=== PATIENT | female | born 1985 | race Caucasian/White ===

== ENCOUNTER 2017-03-21 16:45 | Inpatient (IN) | payer MEDICAID, SELFPAY ==
--- NOTE | 2017-03-19 22:30 | PLAC_PTH ---
PATIENT: MAR ACOSTA LOC: [facility] U#:[id number] AGE/SX: 31/F ROOM: WP014 RE03/21/[address]: Dr. Radha Lomeli MD : [id number] BED: 1 DIS: 03/23/2017 SPEC #: [id number] RECD: 03/21/17 23:57 STATUS: CONSUELO ANDREW #: [id number] KEVIN: 03/19/17 22:[address]: Radha Lomeli DEPT: SURGICAL PATHOLOGY RECD BY: Dre Reveles ENTERED: 03/22/17 08:21 SP TYPE: PLACENTA OTHR DR: No Primary Care Phys Tissues: Placenta, NOS Procedures: Surgery Specimen Level V HEADER OPERATION: Vaginal delivery PRE-OP DIAGNOSIS: Drug use in TISSUE SUBMITTED: Placenta MICROSCOPIC DIAGNOSIS Camacho placenta (548 gm): Umbilical cord ? trivascular with no inflammation. Placental membranes ? acute deciduitis and acute chorioamnionitis, focal acute amnionitis. Placental disc ? remote infarct, Kai-Tomas change and intravillous congestion. AM:andrea 03/23/17 MICROSCOPIC DESCRIPTION Slides are reviewed. GROSS DESCRIPTION SPECIMEN: PLACENTA / CLINICAL INFORMATION: A. Weight: 3.025 kg B. Gestational Age: 37 weeks C. Sex: Male PLACENTAL WEIGHT (POST FIXATION): 548 gm PLACENTAL DIMENSIONS: 16 x 15 x 3 cm PLACENTAL SHAPE: Usual ovoid PLACENTAL WEIGHT FOR GESTATIONAL AGE: Within 10-99th percentile MEMBRANES - Present A. Insertion: Marginal B. Site of rupture from edge: At 8 cm from edge of placental disc C. Color of membrane: Oglesby-benites D. Abnormalities: None UMBILICAL CORD - Present A. Color: Oglesby-benites B. Insertion: Marginal C. Length: 32 cm D. Diameter: 1 cm E. Number of vessels: Three F. Abnormalities: None PLACENTAL DISC - Present A. Color of surface: Oglesby-benites B. surface abnormalities: None C. Maternal cotyledons: Intact with minimal tears D. Attached retro placental clot: No clot E. Cut surface: Dark red and spongy F. Lesions: Serial sections reveal a oglesby-white lesion measuring 2.5 x 2 x 1.5 cm at edge of the placental disc. G. Separate clot: Absent SECTIONS SUBMITTED: 1. Membrane roll and umbilical cord ( end inked in black) 2. Placental disc, and maternal surfaces, lesion 3. Placental disc, and maternal surfaces 4. Placental disc, and maternal surfaces AM:andrea 03/22/17 TC:2 CPT: 64611
[2017-03-21 17:02] VITALS: BMI 24.7
[2017-03-21] MEDS: Lactated Ringers 1,000 ML 50 ML IV ×2 (17:15→18:20)
[2017-03-21 17:24] LABS: Hematocrit 32.2 % (37-47); Hemoglobin 10.5 g/dl (12.0-15.0); Mean Corp Hgb Conc 32.6 g/gl (32-36); Mean Corpuscular Hgb 31.4 pg (27.0-32.0); Mean Corpuscular Volume 96.4 fL (81-99); Mean Platelet Vol. 11.3 fl (6.2-12.0); Platelet Count 185 K/mm3 (150-450); RBC Distribution Width CV 13.4 % (11.6-14.6); RBC Distribution Width SD 45.9 fl (35.1-43.9); Red Blood Count 3.34 M/mm3 (4.2-5.4)
[2017-03-21 17:27] LABS: Scan Indicated on CBC? Y/N NO
[2017-03-21 17:39] LABS: Amphetamine Urine VISTA NEGATIVE (<1000 ng/mL); Barbiturate Urine VISTA NEGATIVE (< 200 ng/mL); Benzodiazepine Urine VISTA NEGATIVE (< 200 ng/mL); Cocaine Urine VISTA NEGATIVE (< 300 ng/mL); Ecstacy Urine VISTA NEGATIVE (< 500 ng/mL); Methadone Urine VISTA NEGATIVE (< 300 ng/mL); PCP Urine VISTA NEGATIVE (< 25 ng/mL); THC Urine VISTA NEGATIVE (< 50 ng/mL); Vista UDS pH Range 5
[2017-03-21 19:44] LABS: Chlamydia Trachomatis by PCR POSITIVE (Negative); Neisserai gonorrhoeae by PCR Negative (Negative); Probe Check PASS
--- NOTE | 2017-03-21 21:17 | HP.PCM_ITS ---
(1) Active labor at term Status: Acute (2) Supervision of high risk due to social problems Status: Acute Qualifiers: Comment: CASSANDRA 04/08/17 (3) complicated by subutex maintenance, antepartum Status: Acute Comment: MFM consult (4) Late care affecting in third trimester Status: Acute Comment: first visit 30 weeks, growth us initially at [place] , fu growth us consistent (5) Drug use affecting Status: Acute Qualifiers: Comment: on subutex, positive for benzos and amphetamines (6) Chlamydia infection affecting in third trimester Status: Acute Comment: ordered azithro, needs DINO ta 36 weeks, check hiv, hep c, rpr, and gbs at 36 weeks History Date of Admission: 03/21/17 Gestational age: 37 History of this : 31 yo @ 37w3 days presents IAL 3-4 cm dilated made change to 5 Pertinent Past Medical History: see problem list and history section Allergies hydrocodone bitartrate [From Vicodin] Adverse Reaction (Mild, Verified 03/21/17 17:04) Other INCREASED RESTLESS LEGS diphenhydramine Adverse Reaction (Verified 03/05/17 14:21) Other INCREASED RESTLESS LEGS propoxyphene napsylate [From Darvocet-N] Adverse Reaction (Verified 03/05/17 14: 21) Other INCREASED RESTLES SYNDROME Current Medications Acetaminophen (Tylenol) 325 - 650 mg PO Q4H PRN PRN PRN Reason: PAIN OR FEVER >100.4F Al Hydroxide/Mg Hydroxide (Mylanta Ii) 15 - 30 ml PO Q4H PRN PRN PRN Reason: INDIGESTION Citric Acid/Sodium Citrate (Bicitra) 30 ml PO UD PRN Lactated Ringer's () 1,000 mls @ 50 mls/hr IV .Q20H SAIMA Last Admin: 03/21/17 18:20 Dose: 50 mls/hr Penicillin G Potassium/Dextrose (Penicillin G Potassium) 3 mu in 50 mls @ 100 mls/hr IV Q4H SAIMA Naloxone HCl 4 mg/ Dextrose 504 mls @ 0 mls/hr IV PRN PRN; Protocol PRN Reason: TO MAINTAIN RR>10 Nalbuphine HCl (Nubain) 5 - 10 mg IV Q3H PRN PRN PRN Reason: PAIN (4-10/10) Naloxone HCl (Narcan) 0.2 mg IV Q1M PRN PRN Reason: RR<10 AND PT UNRESPONSIVE Stop: 03/22/17 19:31 Ondansetron HCl (Zofran) 4 mg IV Q8H PRN PRN PRN Reason: NAUSEA Promethazine HCl (Phenergan (Ll)) 6.25 - 12.5 mg IV Q4H PRN PRN; Protocol PRN Reason: IF NAUSEA PERSISTS Sodium Chloride () 5 - 15 ml IV UD SAIMA Last Admin: 03/21/17 19:54 Dose: Not Given Smoking Status: Current every day smoker Alcohol: None Drug Use: marijuana - on subutex has been positive for meth and benzos Number of Fetus(es): 1 - FHT 120-130 min-moderate variability reactive no decels cat I tracing Review of Systems Constitutional: Denies: Chills, Fever, Weight Change HEENT: Denies: Head Aches, Sinus Congestion, Sinus Drainage Cardiovascular: Denies: Chest Pain, Palpitations Respiratory: Denies: Cough, Shortness of breath at rest, Sputum production Gastrointestinal: Reports: Abdominal Pain, Nausea. Denies: Vomiting Genitourinary: Denies: Dysuria Musculoskeletal: Denies: Joint Pain, Joint Tenderness Skin: Denies: Rash, Wounds Neurological: Denies: Numbness, Tingling, Focal weakness Psychiatric: Denies: Anxiety, Depression, Homicidal Ideations, Suicidal Ideations Hematologic/ Lymphatic: Denies: Easy Bruising, Easy Bleeding Physical Exam General: Alert, Oriented x3, No apparent distress Cardiovascular: Regular rate Lungs: Normal air movement Abdomen: Soft, Gravid Estimated gestational size: Small for gestational age Presentation: Cephalic Cervix Dilation (cm): 5 Station: -1 Effacement (%): 90 Assessment/Plan Active and Suspected Problems (Last Reviewed 03/05/17 @ 14:21 by Amy Prajapati) Active labor at term (Acute) 31 yo @ 37w3d presents IAL gbs neg on most recent culture, no positive urine cultures in recent chlamydia- s/p treatment subutex treatment- continue patient's own plan PPTL- title 19 signed epidural
[2017-03-21] MEDS: Oxytocin 30 units/NS 500 ml 30 UNITS/500 ML IV.SOLN 334 UNITS IV (22:14)
--- NOTE | 2017-03-21 22:38 | PCM.OB.VAG ---
(1) Active labor at term Status: Acute (2) Supervision of high risk due to social problems Status: Acute Qualifiers: Comment: CASSANDRA 04/08/17 (3) complicated by subutex maintenance, antepartum Status: Acute Comment: MFM consult (4) Late care affecting in third trimester Status: Acute Comment: first visit 30 weeks, growth us initially at [place], fu growth us consistent (5) Drug use affecting Status: Acute Qualifiers: Comment: on subutex, positive for benzos and amphetamines (6) Chlamydia infection affecting in third trimester Status: Acute Comment: ordered azithro, needs DINO ta 36 weeks, check hiv, hep c, rpr, and gbs at 36 weeks (7) Normal delivery at term Status: Acute Vaginal Delivery Maternal Presentation: Active Labor 31-year-old at 37 weeks 3 days presents in active labor Amniotic Membrane Rupture Type: Artificial Amniotic Fluid Description: Clear Final CASSANDRA: 04/08/17 Gestational age: 37 Weeks and 3 Days Date of Procedure: 03/21/17 Pre-Operative Diagnosis: 31-year-old at 37 weeks 3 days in active labor Post-Operative Diagnosis: Same Surgery/ Procedure Performed: Spontaneous Vaginal Delivery Type of Anesthesia: Epidural Description of Procedure: Patient began pushing and delivered the head in the JASON presentation. The head was delivered atraumatically. The anterior and posterior shoulders delivered without complication followed by the rest of the and the infant was placed on the maternal abdomen. Delayed cord clamping was employed for approximately 60 seconds. Cord was clamped and cut and gentle traction was applied to the cord and the placenta delivered spontaneously immediately following it was noted to be intact with three-vessel cord. The perineum and vagina were inspected and noted to have no laceration. EBL was 100 cc. Patient and tolerated delivery well. Presentation: JASON Placental Delivery Description: Spontaneous Placenta Disposition: Sent to Pathology Cord Vessel Description: 3 Vessels Cord Gases drawn per routine: ABG Cord Entanglement: None Estimated Blood Loss: 100 A gender: Male (1 minute): 8 (5 minute): 9 Episiotomy Description: None Laceration: None Medications given after delivery: IV Pitocin Complications: None
--- NOTE | 2017-03-21 22:41 | DCINST_ITS ---
Discharge Diet: No Restrictions Discharge Activity: Return to Normal Activity, May not drive while taking narcotic pain medications., May Shower May resume sexual activity in: 4-6 weeks Additional Activity Instructions:: Nothing in the vagina for 4-6 weeks. You may return to work/school in 6 weeks. Call your doctor if your incision/area has: Continuous Slow Oozing, Sudden Increased Bleeding, Increased Pain/ Swelling, Increased Redness, Foul Smelling Discharge Additional Instructions: If you experience any of the following, contact your healthcare provider. * Bleeding that soaks a pad every hour for 2 hours * Fever 100.4 or higher * Unrelieved incision or abdominal pain * Swelling, redness, discharge or bleeding from your incision or episiotomy site * Your incision begins to separate * Problems urinating (including inability to urinate or burning while urinating) . * Visual changes * Severe headache * Flu-like symptoms * Pain or redness in one of both of your breasts * Pain, warmth, tenderness or swelling in your legs, especially the calf area * Frequent nausea and vomiting * Symptoms of depression or anxiety If you experience any of the following, call 911 or go to the nearest Emergency Room. * Chest pain * Problems breathing * Seizure activity * Partial or complete paralysis of a body part, slurred speech, weakness or drooping of the face, or a sudden inability to walk or hold your balance Allergies/Adverse Reactions: Allergies hydrocodone bitartrate [From Vicodin] Adverse Reaction (Mild, Verified 03/21/17 17:04) Other INCREASED RESTLESS LEGS diphenhydramine Adverse Reaction (Verified 03/05/17 14:21) Other INCREASED RESTLESS LEGS propoxyphene napsylate [From Darvocet-N] Adverse Reaction (Verified 03/05/17 14: 21) Other INCREASED RESTLES SYNDROME Medications to take at Discharge Vits 2 tab PO DAILY 03/08/14 buprenorphine HCl 8 mg sublingual tablet 8 mg SUBLINGUAL QDAY 02/17/17 hydroxyzine pamoate 25 mg capsule 25 mg PO TID-QID PRN #30 cap 02/17/17 Citalopram Hydrobromide [Citalopram HBr] 20 mg PO QDAY 03/21/17 vitamin #56-iron 35 mg and 5 mg-folic acid 1 mg-dha capsule 1 cap PO QHS 03/21/17 Please Follow Up With: Radha Lomeli MD - [phone] When: Call to make an appointment with your doctor in 6 weeks. If you had elevated Blood Pressure or 4th degree laceration you will need to be seen in 2 weeks. Primary Care Physician: Care Physician,No Primary [Primary Care Provider] -
[2017-03-21] MEDS: Oxytocin 30 units/NS 500 ml 30 UNITS/500 ML IV.SOLN 167 UNITS IV (22:45)
[2017-03-21] MEDS: Lactated Ringers 1,000 ML 125 ML IV (23:53)
[2017-03-22] MEDS: Acetaminophen 500 MG Tablet 1000 MG PO (00:08)
--- NOTE | 2017-03-22 02:20 | NURSING ---
At 0130, this nurse called Dr. Lomeli reguarding pts request to go outside to smoke, she currently has her IV and epidural catheter in d/t her scheduled Bilateral Tubal Ligation in the AM. states she can have her IV and epidural removed prior to going outside, but will have to have them replaced in the morning prior to the procedure. The pt was informed of this and she then refused to have her epidural/spinal replaced if it is removed. She states she will cancel her procedure if that is the case. The pt was upset and felt the staff and MD were treating her this way bc of her drug history. The patient was informed this is our hospital policy and all pts have to follow this. Pt states she wants Dr. Lomeli to know she wants her tubal canceled bc she is going outside. Dr. Lomeli was then called back at 0145 and made aware of the pts feelings and she is refusing the tubal if her epidural is pulled. she does not want another one placed (or spinal). states if that is what she wants then its her right to. This nurse then returned to the pt room with Charge nurse Terrie Carrillo to notify her Dr. Lomeli states she cannot leave the unit with her epidural. So if she wants to go outside it must be removed and if by morning she still does not want the IV and spinal done, then she will not be doing the tubal. Pt states she wants them out now so she can go outside. Pt got up to BR to void for this nurse, then the epidural and IV were removed. Blue tip was intact.
[2017-03-22 04:50] VITALS: BP 104/57; PULSE 73; RESP 18; TEMP 36.6; O2SAT 99
[2017-03-22 08:00] VITALS: BP 124/75; PULSE 76; RESP 16; TEMP 36.8; O2SAT 99
[2017-03-22] MEDS: Citalopram 20 MG Tablet PO (10:05)
[2017-03-22] MEDS: BUPRENORPHINE HCL 8 MG TAB.SUBL SL ×2 (10:05→21:34)
[2017-03-22 11:45] VITALS: BP 107/65; PULSE 72; RESP 16; TEMP 36.8; O2SAT 98
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
[2017-03-22 16:30] VITALS: BP 110/65; PULSE 70; RESP 16; TEMP 36.9; O2SAT 99
--- NOTE | 2017-03-22 17:00 | CASEMGMT ---
Social Work Note - Labor and Delivery Unit 1530 - Followed up with mother of baby (MOB), providing MOB with resource list of social service agencies in [facility]. MOB reports plan to call [facility] about of baby and may look into whether MOB qualifies for other resources/programs through [facility]. 1605 - Called [facility] ([facility]) at [phone] and spoke with Chely in the intake department. Referral to Chely about of baby, concern about maternal drug use during , positive and negative screens back for MOB, pending results for baby but that baby is appearing to show signs of withdrawal already. Reported that MOB has limited supplies for baby as well as very limited care this . 1637 - Message left for MOBs ongoing [facility] worker, Oksana Smith at [phone], extension [phone]. Let Oksana know that report was called into agency by this food writer and provided this writers name and number should Oksana need to speak to this food writer. PLAN: Social work to follow MOB and baby during hospital stay. -ABIGAIL Ortiz, METAL TEMPERER
[2017-03-22 19:29] VITALS: BP 105/60; PULSE 114; RESP 18; TEMP 37.1; O2SAT 95
--- NOTE | 2017-03-22 21:25 | PCM.PN.OB ---
Patient Problems: Active and Suspected Problems (Last Reviewed 03/05/17 @ 14:21 by Amy Prajapati) Active labor at term (Acute) Normal delivery at term (Acute) Subjective: tolerating po no cp sob declines pptl - Physical Exam General: Alert, Oriented x3 Vital Signs Temp Pulse Resp BP Pulse Ox 98.8 F 114 H 18 105/60 95 03/22/17 19:29 03/22/17 19:29 03/22/17 19:29 03/22/17 19:29 03/22/17 19:29 Oxygen Delivery Method Room Air Weight: 167 lb 8.821 oz Body Mass Index (BMI) 24.7 Intake and Output for Last 24 Hours 03/20/17 03/21/17 03/22/17 23:59 23:59 23:59 Intake Total 2430 / 2430 Output Total 1000 / 1000 1500 / 1500 Balance 1430 / 1430 -1500 / -1500 Assessment/Plan Active and Suspected Problems (Last Reviewed 03/05/17 @ 14:21 by Amy Prajapati) Active labor at term (Acute) Normal delivery at term (Acute) s/p recommend care PP- continue subutex, routine care. declines pptl
[2017-03-23 02:57] VITALS: BP 114/63; PULSE 57; RESP 18; TEMP 37.1; O2SAT 99
[2017-03-23 08:00] VITALS: BP 110/77; PULSE 112; RESP 20; TEMP 36.9; O2SAT 97
[2017-03-23 08:30] VITALS: BP 110/77; PULSE 98; RESP 16; TEMP 36.9; O2SAT 98
--- NOTE | 2017-03-23 08:59 | PCM.PN.OB ---
Patient Problems: Active and Suspected Problems (Last Reviewed 03/05/17 @ 14:21 by Amy Prajapati) Active labor at term (Acute) Normal delivery at term (Acute) Subjective: doing well pain controlled - Physical Exam General: Alert, Oriented x3 Vital Signs Temp Pulse Resp BP Pulse Ox 98.4 F 98 16 110/77 98 03/23/17 08:30 03/23/17 08:30 03/23/17 08:30 03/23/17 08:30 03/23/17 08:30 Oxygen Delivery Method Room Air Weight: 167 lb 8.821 oz Body Mass Index (BMI) 24.7 Intake and Output for Last 24 Hours 03/21/17 03/22/17 03/23/17 23:59 23:59 23:59 Intake Total 2430 / 2430 Output Total 1000 / 1000 1500 / 1500 Balance 1430 / 1430 -1500 / -1500 Assessment/Plan Active and Suspected Problems (Last Reviewed 03/05/17 @ 14:21 by Amy Prajapati) Active labor at term (Acute) Normal delivery at term (Acute) s/p routine care increased celexa continue vistaril and recommend nexplanon will place in my office
[2017-03-23] MEDS: BUPRENORPHINE HCL 8 MG TAB.SUBL SL (09:57)
[2017-03-23] MEDS: Citalopram 40 MG TABLET PO (09:57)
[2017-03-23 11:00] VITALS: BP 113/65; PULSE 99; RESP 20; TEMP 36.6; O2SAT 98
[2017-03-23 11:30] VITALS: BP 113/65; PULSE 102; RESP 16; TEMP 36.7; O2SAT 98
--- NOTE | 2017-03-23 13:00 | CASEMGMT ---
Social Work Note Patient/mother of baby (MOB) completed PHQ9 with a result of 12 (10-14 is range of moderate depression). No identified suicidal thoughts on this scale, consistent to MOB's report to this consumer loan underwriter on 03-22-17. Per nursing, MOB is slated for discharge today, but will go to courtesy status, as was discharged from [facility] and admitted to [facility]. Per nursing, MOB's antidepressant dosage is being increased. Met with MOB briefly today. MOB's boyfriend Maksim also in room. MOB reports plan to go home as soon as OBGYN comes in to insert long acting contraception. MOB reports need to get belongings including medicine. MOB initiated topic of the depression scale. hospital food service worker let MOB know that this consumer loan underwriter has seen the scale and would like to review. As MOB is anxious to go and get belongings, this consumer loan underwriter gave MOB a choice to have further discussion now or when MOB returns. MOB chose to have discussion later, and reports will be returning as baby is in the hospital. MOB voices intent to be present at every baby feeding. MOB smiling today, appearing relaxed sitting on bed today. Affect alert and bright. MOB endorses difficultly focusing today. PLAN: MOB is discharged today. Will follow up with MOB about depression scale, current symptoms, and resources available. -ABIGAIL Ortiz, ACETALDEHYDE CONVERTER OPERATOR
[2017-03-23] MEDS: Etonogestrel 68 MG IMPLANT SQ (13:10)
[2017-03-23 16:30] LABS: Pathology Specimen OB SEE PATHOLOGY REPORT
--- NOTE | 2017-03-24 15:09 | CASEMGMT ---
Social Work Note - Labor and Delivery Saw patient/mother of baby (MOB) briefly when MOB as leaving the unit this morning. Asked MOB if would like to meet with MOB this morning. MOB asked if okay for the afternoon. collision worker agreed. Presented to the SCN this afternoon and per staff, MOB left the unit to go to a meeting with MOB's counselor. PLAN: Will attempt to see MOB on 03-25-17. -MCKAYLA Ortiz, ELECTRIC RANGE SERVICER
--- NOTE | 2017-03-25 15:30 | CASEMGMT ---
Social Work Note Followed up with patient/mother of baby (MOB) today. Through social work visit today MOB was cooperative and seeming to want to engage in conversation as evidenced by MOB talking and sharing thoughts and feelings spontaneously. MOB's mood sad and anxious at times, tearful at one point, and affect normal, restless shifting back and forth in chair. MOB eye contact avoidant overall, but did make more eye contact as the conversation went on. Talked with MOB about depression and supports for this. MOB would like to have a further discussion with MOB's significant other present, so that significant other can hear the same information. MOB has been given resources for community agencies, as well as handouts for coping. MOB is connected with children services, [facility], and will be starting the new family drug court so does have support in in the community. PLAN: MOB is discharged but baby remains in the SCN. Social work continues to follow and will continue to provide support/education as needed or indicated regarding depression or anxiety issues. -MCKAYLA Ortiz, MATE FOURTH
== END 2017-03-23 13:25 | disposition home or self-care (01) | DRG 373 ==
PROVIDERS: Admitting Provider Obstetrics & Gynecology; Visit Provider Obstetrics & Gynecology
DX: O36.5930 Maternal care for other known or suspected poor fetal growth, third trimester, not applicable or unspecified (principal); F17.210 Nicotine dependence, cigarettes, uncomplicated; Z37.0 Single live birth; F19.90 Other psychoactive substance use, unspecified, uncomplicated; Z3A.37 37 weeks gestation of pregnancy; O99.333 Smoking (tobacco) complicating pregnancy, third trimester; Z79.891 Long term (current) use of opiate analgesic
CPT/HCPCS: 59050; 80307; 85027; 86850; 86900; 87491; 87591; 88307; 99218; J7120; G0378

== ENCOUNTER → 2017-08-11 17:42 | Outpatient (CLI) | payer MEDICAID, SELFPAY ==
[2017-08-11 22:10] LABS: Chlamydia Trachomatis by PCR Negative (Negative); Neisserai gonorrhoeae by PCR Negative (Negative); Probe Check PASS; Sample Adequacy Control PASS; Specimen Processing Control PASS
[2017-08-18 11:25] LABS: HPV APTIMA, High Risk Positive (Negative)
== END ==
PROVIDERS: Visit Provider Obstetrics & Gynecology
DX: R10.9 Unspecified abdominal pain (principal); Z11.3 Encounter for screening for infections with a predominantly sexual mode of transmission; Z12.4 Encounter for screening for malignant neoplasm of cervix
CPT/HCPCS: 87086; 87088; 87186; 87491; 87591; 88175; G0145

== ENCOUNTER 2019-07-19 23:31 | Emergency (ER) | payer MEDICAID, SELFPAY ==
[2019-07-19 23:32] VITALS: BP 124/71; PULSE 70; RESP 18; TEMP 36.5; O2SAT 100; BMI 20.4
--- NOTE | 2019-07-19 23:55 | ED.DCSUM_ITS ---
History of Present Illness Chief Complaint: Dental Informant: Patient Onset: Today Narrative: Patient states that a couple days ago she was eating and her right upper canine broke. She states another piece fell off today. She notes increasing pain and some swelling along the gumline. She states she called a couple dentist has not heard back. She took some ibuprofen. No fevers. Previous medical history noted. Past Medical History - Allergies and Home Meds Allergies/Adverse Reactions: Allergies hydrocodone bitartrate [From Vicodin] Adverse Reaction (Mild, Verified 07/19/19 23:31) Other INCREASED RESTLESS LEGS diphenhydramine Adverse Reaction (Verified 07/19/19 23:31) Other INCREASED RESTLESS LEGS propoxyphene napsylate [From Darvocet-N] Adverse Reaction (Verified 07/19/19 23:31) Other INCREASED RESTLES SYNDROME Smoking Status: Current every day smoker Review of Systems General: Denies: Chills, Fever, Sweats Eyes: Denies: Visual changes - bilaterally, Diplopia ENT: Reports: - - Dental pain. Denies: Rhinorrhea, Sore throat Cardiovascular: Denies: Chest pain, Palpitations Respiratory: Denies: Dyspnea, Cough, Dyspnea on exertion Gastrointestinal: Denies: Abdominal pain, Nausea, Vomiting, Diarrhea, Melena, Hematochezia Genitourinary: Denies: Dysuria, Hematuria, Frequency Musculoskeletal: Denies: Back pain, Extremity Pain Skin: Denies: Rash, Wounds Neurological: Denies: Headache, Weakness, Numbness Physical Exam Vital Signs/Narrative: Vital Signs Temp Pulse Resp BP Pulse Ox 07/19/19 23:32 97.7 F L 70 18 124/71 H 100 Inital Vital Signs reviewed: Yes General: Well nourished, Well developed, No Acute Distress Head: Normocephalic, Atraumatic Eyes: Perrl, EOMI ENT: Moist mucous membranes, No rhinorrhea, - - Right upper canine is significantly decayed and only about 50% of the tooth remains. There is some mild swelling along the gumline but no drainable abscess. No facial swelling or erythema Neck: Supple, Nontender Cardiovascular: Regular rate, Regular rhythm, No murmurs Respiratory: No distress, CTA bilaterally, Chest nontender Abdomen: Soft, Nontender, Nondistended, Normal bowel sounds Back: Nontender, Normal Inspection Extremities: Nontender, No edema Skin: Normal color, No rash Neurological: Alert, Oriented x3, Cranial nerves II-XII grossly intact, Normal Strength, Normal Sensation Psychological: Normal affect, Normal Mood Diagnostic/Tx/Re-eval - Medical Decision Making Shot of Toradol. I will start her on penicillin. Follow-up with dentistry as soon as possible ED Disposition - Plan for ED Patient: Disposition: Home or Assisted Living Diagnosis: Periapical abscess Instructions: Dental Abscess Prescriptions: Penicillin V Potassium 500 mg PO 4X/DAY #40 tab Transmission Status: Received by [facility] [facility] Additional Instructions: Follow-up with dentistry as soon as possible
[2019-07-20] MEDS: Ketorolac 60 MG/2 ML Vial IM
[2019-07-20] MEDS: Penicillin Vk 250 MG Tablet 500 MG PO
[2019-07-20 00:02] VITALS: BP 107/59; PULSE 71; RESP 16; O2SAT 100
== END 2019-07-20 00:32 | disposition home or self-care (01) ==
LOC: ED 07-20 00:22
PROVIDERS: Emergency Provider Emergency Medicine
DX: K04.7 Periapical abscess without sinus (principal); K02.9 Dental caries, unspecified; F17.200 Nicotine dependence, unspecified, uncomplicated
CPT/HCPCS: 96372; 99283

== ENCOUNTER 2020-10-17 15:00 | Emergency (ER) | payer MEDICAID, SELFPAY ==
[2020-10-17 15:01] VITALS: BP 106/60; PULSE 68; RESP 18; TEMP 36.6; O2SAT 99; BMI 22.0
--- NOTE | 2020-10-17 16:35 | RAD_ITS ---
STUDY: X-RAY CHEST REASON FOR EXAM: Female, 35 years old. Weakness. Fatigue. TECHNIQUE: Single AP portable view of the chest. COMPARISON: None. FINDINGS: The lungs are clear and expanded. There is no demonstrated pleural abnormality. Normal size heart. Normal mediastinum and judy. Normal visualized pulmonary arteries. Normal visualized aortic arch and descending thoracic aorta. Normal visualized thoracic spine. Normal visualized ribs, clavicles, and shoulders. There is no demonstrated abnormality of the visualized soft tissue structures of the upper abdomen. RAD/Chest 1 View (Portable) IMPRESSION: Normal x-ray examination of the chest. Electronically Signed: Jhonny Wade DO at 17:35 EDT Tel [phone], Service support ,
--- NOTE | 2020-10-17 16:40 | EDS_ITS ---
HPI History of Present Illness Chief Complaint: General Illness Narrative Narrative: Patient presents with lightheadedness. This started earlier today she fell asleep in her car, it is quite hot outside when she woke up she felt weak and drained and lightheaded. She has no fever or chills. She has no vision changes or headache. She has no neck pain or stiffness. She has no upper airway congestion. She has no chest pain or shortness of breath. She has no abdominal pain. She denies dysuria. [facility] Medical History (Updated 10/17/20 @ 18:[address] Zana Owen MD) Abnormal Pap smear of cervix Anxiety Home Medications buprenorphine-naloxone [Suboxone] 1 tab SUBLINGUAL QODAY 10/17/20 [History Last Taken Unknown] Allergy/AdvReac Type Severity Reaction Status Date / Time hydrocodone bitartrate AdvReac Mild Other Verified 10/17/20 15:04 [From Vicodin] diphenhydramine AdvReac Other Verified 10/17/20 15:04 propoxyphene napsylate AdvReac Other Verified 10/17/20 15:04 [From Darvocet-N] Family History Grandfather Cancer Lung Colon cancer Grandmother Breast cancer Surgical History H/O removal of cyst Social History (Updated 08/11/17 @ 11:[address] Radha Lomeli MD) Smoking Status: Current every day smoker tobacco type: cigarettes alcohol intake: never substance use type: does not use caffeine: Yes (5 hour energy) what type of physical activity do you participate in: none seatbelt use: always do you feel safe at home: Yes additional social history: Single ROS ROS ED ROS Narrative Past medical history: Reviewed Medications: Reviewed Social history: Noncontributory Review of systems: All systems negative except as indicated General: No fever. She feels lightheaded, there is generalized weakness as in HPI Eyes: No visual changes ENT: No upper airway congestion, normal voice Neck: No neck pain Cardiovascular: No chest pain Respiratory: No shortness of breath or cough Gastrointestinal: No abdominal pain, nausea vomiting or diarrhea Genitourinary: No dysuria Musculoskeletal: Denies myalgias no difficulty with ambulation Skin: No rash Neurological: No memory loss, confusion or any focal weakness Psych: No recent behavioral changes Hematologic: No easy bleeding or easy bruising EXAM Physical Exam Narrative Exam Narrative: Physical exam General: Patient is sleeping comfortably in the bed. She does not appear in any distress. Head: Normocephalic, Atraumatic Eyes: Conjunctiva not pale ENT: Somewhat dry mucous membranes Neck: Supple, Nontender, No lymphadenopathy Cardiovascular: Regular rate, Regular rhythm Respiratory: No distress, CTA bilaterally Abdomen: Soft, Nontender, Nondistended Back: Nontender, Normal Inspection. Negative for: CVA tenderness Extremities: Nontender, No edema Skin: Normal color, No rash Neurological: Alert, Normal Strength, Normal Sensation Psychological: Normal affect Const Vital Signs: 10/17/20 15:01 10/17/20 16:37 10/17/20 18:03 Temperature 97.8 F Temperature Source Temporal Pulse Rate 68 65 Respiratory Rate 18 18 Respiratory Effort Normal Non-Labored Respiratory Pattern Normal Blood Pressure 106/60 Blood Pressure Mean 75 Pulse Ox 99 99 Oxygen Delivery Method Room Air Room Air MDM MDM MDM Narrative Medical decision making narrative: Patient is given IV fluids and she is significantly improved. She went to talk to social work lecturer for home placement since apparently she is homeless and she was given resources. There is a mention of hearing voices however when I talked to the patient again she does not seem delusional she is not paranoid and she denies hearing any voices. She has a relatively normal mood. She is found to have a mild urinary tract in fection which I will treat. Lab Data Labs: Laboratory Results - last 24 hr 10/17/20 10/17/20 10/17/20 16:50 16:50 18:00 WBC 5.6 RBC 3.35 L Hgb 11.0 L Hct 32.2 L MCV 96.1 MCH 32.8 H MCHC 34.2 RDW Std Deviation 42.3 RDW Coeff of Babatunde 12.1 Plt Count 222 MPV 10.3 Immature Gran % (Auto) 0.000 Neut % (Auto) 41.6 L Lymph % (Auto) 41.4 H [place] % (Auto) 11.4 H Eos % (Auto) 5.2 H Baso % (Auto) 0.4 Absolute Neuts (auto) 2.4 Absolute Lymphs (auto) 2.33 Nucleated RBC % 0 Sodium 140 Potassium 4.1 Chloride 108 H Carbon Dioxide 30.0 Anion Gap 2 L BUN 16 Creatinine 0.66 Estim Creat Clear Calc 129.88 Est GFR (MDRD) Af Amer 133 Est GFR (MDRD) Non-Af 110 BUN/Creatinine Ratio 24.4 H Glucose 78 Calcium 8.1 L Total Bilirubin 0.30 AST 15 ALT 27 Alkaline Phosphatase 58 Total Protein 6.9 Albumin 3.6 Globulin 3.3 Albumin/Globulin Ratio 1.1 Lipase 102 Urine Color Yellow Urine Clarity Sl. Cloudy Urine pH 5.0 Ur Specific [place] 1.030 Urine Protein 15 H Urine Glucose (UA) Normal Urine Ketones Negative Urine Occult Blood 150 H Urine Nitrite Positive H Urine Bilirubin Negative Urine Urobilinogen Normal Ur Leukocyte Esterase 25 H Urine RBC 10-25 SEEN Urine WBC 0-5 SEEN Ur Squamous Epith Cells 0-5 SEEN Urine Bacteria 1+ Urine Mucus 0 SEEN Urine Test Negative Radiography Diagnostic Testing: Radiology Impression Chest X-Ray 10/17/20 16:35 IMPRESSION: Normal x-ray examination of the chest. Electronically Signed: Jhonny Wade DO at 17:35 EDT Tel [phone], Service support , Discharge Plan Triage Chief Complaint: General Illness ED Provider: Zana Owen Dx/Rx/DC Orders Clinical Impression: UTI (urinary tract infection), Dehydration Instructions: Urinary Tract Infections in Women, Dehydration Prescriptions: No Action buprenorphine-naloxone [Suboxone] 8-2 mg Tablet, Sublingual 1 tab SUBLINGUAL QODAY RF: 0 Primary Care Provider: Care Physician,No Primary Referrals: Jax Hodgson MD [NON-STAFF] - Care Physician,No Primary [Primary Care Provider] - Disposition Disposition: Home, Self Care
[2020-10-17] MEDS: 0.9% Normal Saline 1,000 ML 1000 ML IV (16:52)
--- NOTE | 2020-10-17 16:59 | ED.RN ---
PT REQUESTING TO SPEAK TO IMPOSER. WHEN THIS RN INQUIRES WHY PT REPORTS TEARFULLY, I AM HAVING A HARD TIME. PT ELABORATES NO FURTHER. DR. INIGUEZ AND TED IMPOSER NOTIFIED.
[2020-10-17 17:09] LABS: Absolute Lymphocyte Count 2.33 X10^3/uL (0.83-4.51); Absolute Neutrophil Count 2.4 X10^3/uL (2.0-7.7); Basophil# 0.02 X10^3/uL; Basophil% 0.4 % (0-1); Eosinophil# 0.29 X10^3/uL; Eosinophils% 5.2 % (0-5); Hematocrit 32.2 % (37-47); Lymphocyte # 2.33 X10^3/ul (0.83-4.51); Lymphocyte % 41.4 % (19-41); Mean Corp Hgb Conc 34.2 g/dL (32-36); Mean Corpuscular Hgb 32.8 pg (27.0-32.0); Mean Corpuscular Volume 96.1 fL (81-99); Mean Platelet Vol. 10.3 fl (6.2-12.0); Monocyte# 0.64 X10^3/uL; Monocyte% 11.4 % (0-10); NRBC Flagged by Analyzer 0 % (0-5); Neutrophil # 2.35 X10^3/uL (2.7-7.7); Neutrophil % 41.6 % (47-70); Platelet Count 222 K/mm3 (150-450); RBC Distribution Width CV 12.1 % (11.6-14.6); RBC Distribution Width SD 42.3 fl (35.1-43.9); Red Blood Count 3.35 M/mm3 (4.2-5.4); White Blood Count 5.6 K/mm3 (4.4-11.0)
[2020-10-17 17:35] LABS: ALB/GLOB Ratio 1.1 RATIO (0.9-2.4); AST(SGOT) 15 U/L (15-37); Alanine Aminotransfer ALT/SGPT 27 U/L (13-56); Albumin, Serum 3.6 g/dL (3.2-5.0); Alkaline Phosphatase 58 U/L (45-117); Anion Gap 2 (5-15); BUN 16 mg/dL (7-18); BUN/Creat Ratio 24.4 RATIO (10-20); Calcium,Total 8.1 mg/dL (8.5-10.1); Chloride 108 mmol/L (98-107); Creatinine, Serum 0.66 mg/dL (0.55-1.02); EST Glomerular Filtration Rate 110 mL/min (>60); Est Glom Filt Rate - Afr Amer 133 mL/min (>60); Estimated Creatinine Clearance 129.88 ml/min; Globulin 3.3 g/dL (2.2-4.2); Glucose 78 mg/dL (74-106); Lipase 102 U/L (73-393); Potassium 4.1 mmol/L (3.5-5.1); Protein, Total 6.9 g/dL (6.4-8.2); Sodium Level 140 mmol/L (136-145)
[2020-10-17 18:03] VITALS: PULSE 65; RESP 18; O2SAT 99
[2020-10-17 18:03] LABS: Mucous, Urine 0 SEEN /hpf (<or=2+)
[2020-10-17 18:09] LABS: Color, Urine Yellow (Yellow); Glucose, Dipstick Normal (Normal); Ketone-Dipstick Negative (Negative); Leukocyte Esterase-Dipstick 25 /ul (Negative); Nitrite-Dipstick Positive (Negative); Occult Blood-Urine 150 /ul (Negative); Protein-Dipstick 15 mg/dl (Negative); Urine Bilirubin Dipstick Negative (Negative); Urine Clarity Sl. Cloudy (Clear); Urine Urobilinogen Normal (Normal)
[2020-10-17 18:20] LABS: Red Blood Cells-Urine 10-25 SEEN /hpf (0-5); White Blood Cells 0-5 SEEN /hpf (0-5)
[2020-10-17 18:21] LABS: Bacteria 1+ /hpf (None Seen); Internal QC Validated? YES +Cl - CLEAR BKGD; Pregnancy, Urine Negative Negative; Squamous Epithelial Cells - UA 0-5 SEEN /hpf (5-10)
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
[2020-10-17] MEDS: FOSFOMYCIN TROMETHAMINE 3 GM PACKET PO (19:44)
[2020-10-17 19:45] VITALS: BP 113/57; PULSE 71; RESP 15; O2SAT 98
== END 2020-10-17 19:45 | disposition home or self-care (01) ==
PROVIDERS: Emergency Provider Emergency Medicine
DX: N39.0 Urinary tract infection, site not specified (principal); E86.0 Dehydration; F17.210 Nicotine dependence, cigarettes, uncomplicated
CPT/HCPCS: 71045; 80053; 81001; 81025; 83690; 85025; 96360; 99284; J7030; J7040

== ENCOUNTER 2021-08-21 05:48 | Day surgery (SDC) | payer MEDICAID, SELFPAY ==
[2021-08-21] VITALS (18 sets, daily range): BP systolic 92–118; BP diastolic 54–80; PULSE 48–76; RESP 16–18; TEMP 36.4–37.6; O2SAT 96–100; BMI 27.8
--- NOTE | 2021-08-21 | IMM_PTH ---
PATIENT: MAR ACOSTA [place] [facility] [place][id number] AGE/SX: 36/F ROOM: RE08/21/[address]: Dr. Winnie Berger MD : 1985 BED: DIS: 08/21/2021 SPEC #: [id number] RECD: 08/22/21 12:27 STATUS: CONSUELO REZeeshan #: [id number] KEVIN: 08/21/21 00:[address]: Winnie Berger DEPT: IMMUNOHISTOCHEMISTRY RECD BY: Celestina Guaman ENTERED: 08/22/21 12:31 SP TYPE: IMMUNO OT DR: No Primary Care Phys Tissues: B - Uterine cervix, NOS Procedures: p16 (initial) KI-67 (add) PHYSICIAN & INSTITUTION [place] [id number] SPECIMEN INFORMATION: Tissue Source: B ? Cervical cone biopsy Clinical Info: Abnormal pap, condyloma Specimen Number: [id number] CPT code: 94486, 09985 METHODOLOGY: Deparaffinized sections of prefer/formalin-fixed tissue or PAP/DQ stained slides are incubated with monoclonal/polyclonal antibodies/oligonucleotide probes. Localization is made via biotin free immunoperoxidase method. Appropriate controls are performed and reacted as expected. Results on target cell population are indicated in the following table: RESULTS: ANTIBODY / CLONE RESULT Block B5 P16 (E6H4) positive, block staining Ki-67 (30-9) positive, high These tests were developed and their performance characteristics determined by [facility]. They may not have been cleared or approved by the U.S. Food and Drug Administration. The FDA has determined that such clearance or approval is not necessary. The above immunohistochemical/dualISH markers are ordered and reviewed by the Pathologist. INTERPRETATION: B. Cervical cone, biopsy: Severe squamous dysplasia. TRINO:andrea 08/26/2021
[2021-08-21 06:28] LABS: Internal QC Validated? YES +Cl - CLEAR BKGD; Pregnancy, Urine Negative Negative
[2021-08-21] MEDS: Acetaminophen 500 MG Tablet 1000 MG PO (06:31)
[2021-08-21] MEDS: Celecoxib 200 MG Capsule 400 MG PO (06:31)
[2021-08-21] MEDS: Lactated Ringers 1,000 ML 70 ML IV (06:31)
--- NOTE | 2021-08-21 07:28 | DCINST_ITS ---
Discharge Instructions Diet Discharge Diet: No restrictions Activity May resume sexual activity in: 2 weeks Lifting Restrictions: none Dressing / Incision Call your doctor if your incision/area has: Sudden Increased Bleeding and Foul Smelling Discharge Call your doctor if you observe: Fever of 101 or Higher and Using more than 1 pad per hour (for 2 hrs in a row) Follow Up Care Please Follow Up With: Winnie Berger MD When: 2-4 weeks or as needed. Call [phone] to make an appointment or with any concerns. Test Results: Test results from this visit will be discussed in further detail at your follow- up appointment, if applicable. Discharge Plan Admission Primary Reason for Your Visit: Cone biopsy, vulvar biopsy, IUD insertion, Nexplanon removal Attending Provider: Winnie Berger Primary Care Provider: Care Physician,Jackelyn Primary Discharge Orders/Prescriptions Prescriptions: New naproxen 375 mg tablet 375 mg PO BID PRN (Reason: pain) 7 Days Qty: 14 0RF Continued buprenorphine-naloxone 8-2 mg Tablet, Sublingual 1 tab SUBLINGUAL BID venlafaxine [Effexor XR] 150 mg Capsule,Extended Release 24hr 225 mg PO DAILY quetiapine 50 mg tablet 200 mg PO DAILY Referrals / Follow Up: Care Physician,No Primary [Primary Care Provider] - Disposition Disposition (needs filled in before D/C Order can be placed): Home, Self Care
--- NOTE | 2021-08-21 07:30 | CONE_PTH ---
PATIENT: MAR ACOSTA LOC: [facility] [place] U#:[id number] AGE/SX: 36/F ROOM: RE08/21/[address]: Dr. Winnie Berger MD : 1985 BED: DIS: 08/21/2021 SPEC #: [id number] RECD: 08/21/21 09:13 STATUS: CONSUELO ANDREW #: [id number] KEVIN: 08/21/21 07:[address]: Winnie Berger DEPT: SURGICAL PATHOLOGY RECD BY: Flavio Hays ENTERED: 08/21/21 13:21 SP TYPE: Leep Cone DESMOND DR: Jackelyn Primary Care Phys Tissues: A - UTERINE CERVIX LEEP B - UTERINE CERVIX LEEP C - Endocervical Procedures: Surgery Specimen Level IV Surgery Specimen Level V HEADER OPERATION: Cone biopsy, cervix, removal of Nexplanon PRE-OP DIAGNOSIS: Abnormal pap smear on cervix, condyloma TISSUE SUBMITTED: A - Vulvar biopsy, B - Cervical cone biopsy, stitch at 12 o?clock, C - Endocervical curettings MICROSCOPIC DIAGNOSIS A. Vulvar biopsy: Polypoid intradermal nevi x2. B. 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 Dysplastic changes also involve the endocervical glands. Resection margins are free of dysplastic changes. See comment. C. Endocervical curettings: Fragments of proliferative endometrium. See comment. SJ:andrea 08/22/2021 COMMENT B. Immunohistochemistry ([id number]) for surrogate HPV marker (p16) supports the above diagnosis. C. Endocervical tissue is not identified in the specimen. Case has been reviewed in consultation with Dr. Amin who concurs with the above diagnosis. IDC:AM MICROSCOPIC DESCRIPTION Slides are reviewed. GROSS DESCRIPTION A - Received in fixative is one container labeled with the patient's name and designated vulvar biopsy. The specimen consists of two polypoid fragments of oglesby tissue ranging in size from 0.2 to 0.6 cm. The larger fragment is bisected and submitted along with the smaller fragment in one cassette. B - Received in fixative is one container labeled with the patient's name and designated cervical cone. The specimen consists of a conical fragment of mucosa with attached cervical tissue measuring 3 cm in length and 2.2 cm in diameter. The specimen is differentially inked as follows: 12 o?clock ? black, 3 o?clock ? blue, 6 o?clock ? green and 9 o?clock ? red. The specimen is radially sectioned and totally submitted in six cassettes. C - Received in fixative is one container labeled with the patient's name and designated endocervical curettings. The specimen consists of multiple irregular fragments of red-oglesby soft tissue that in aggregate measure 1 x 0.5 x 0.1 cm. The specimen is totally submitted in one cassette. / AM:andrea 08/21/2021 TC:5 CPT: 61727, 64480 x2
[2021-08-21] MEDS: Lidocaine 1% /Epi 1:100 (20ml) 20 ML Vial (07:37)
[2021-08-21] MEDS: Iodine/Potassium Iodide 14ML Bottle 1 DRP TOPICAL (08:00)
[2021-08-21] MEDS: FERRIC SUBSULFATE 8 GM SOLN (08:02)
[2021-08-21] MEDS: Levonorgestrel IUD (Liletta) 1 EACH INTRA-UTER (08:11)
--- NOTE | 2021-08-21 08:25 | PCM.OPRPT ---
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: (2) Vulval lesion: (3) Encounter for IUD insertion: (4) Nexplanon removal: Report of Operation Date of Procedure: 08/21/21 Pre-Operative Diagnosis: TERESA 3 of cervix, Nexplanon removal, Liletta IUD insertion, vulvar biopsy Post-Operative Diagnosis: same Surgery/Procedure Performed:: Cone biopsy of the cervix, Nexplanon removal, IUD insertion, vulvar biopsy Description of Surgical Findings:: normal cervix and vagina, vulvar lesions on left side mons and left perineal/perianal area Surgeon: Winnie Berger director transportation: None Type of Anesthesia: MAC/Supplemental/Local Anesthesiologist: Dari Cardona Special Medications: none Specimen's removed: cone biopsy, ECC, vulvar biopsy Drains: none Estimated Blood Loss (mL): 20 Fluids Replaced: 1100 Description of Procedure: The patient was taken the operating room where she was prepped and draped in dorsolithotomy position. MAC anesthesia was induced. Some local anesthesia was placed over the Nexplanon insertion site on her left arm after it had been prepped. An incision was made in the arm and the Nexplanon brought through the incision. It was removed intact. The wound was dressed with 4 x 4 and some tape. Attention was then turned to the vaginal portion of the case. 2 small vulvar lesions, 1 on the left side of the mons and 1 on the left side of the perianal lesion were pedunculated. Some 1% Xylocaine with dilute epinephrine solution was placed in the skin and the lesions were removed with a scalpel. The sites were made hemostatic with pressure and cauterization. Some Lugol's solution was then placed on the cervix. The cervix was again infiltrated with 1% Xylocaine with dilute epinephrine solution. Cone biopsy was then performed with a scalpel. 2 stay sutures had been placed at 3 and 1 at 9:00. The specimen was marked at 12:00 and handed off. Endocervical curettage was then performed. The specimen was also handed off. Vulvar biopsies were handed off. Cauterization was then used and the base of the cone biopsy site. The Liletta IUD was then inserted to the fundus and deployed in the usual sterile fashion. The strings were cut to approximately 3 cm. Some Monsel's and piece of Surgicel were placed over the wound. The 0 Vicryl sutures were tied over the Surgicel. Vaginal sweep was completed by me. Sponge and needle counts were correct. Patient was awakened taken the recovery room stable condition Grafts/Implants Used: none Procedure Start Time: 08:37 Procedure Stop Time: 08:12 Complications none Admit VTE Documentation VTE Present on Admission: No VTE Mechan Device Prophylaxis: SCD's VTE Pharm Prophylaxis ordered?: No
--- NOTE | 2021-08-21 10:45 | SUR.PREOP ---
PATIENT HAVING HEAVY VAGINAL BLEEDING POST OPERATIVELY. DR ALLEN RE-EVALUATES AFTER 1 HOUR OF VAGINAL PACKING AND DECIDES TO TAKE PATIENT BACK INTO SURGERY FOR MORE CAUTERY. NEW CONSENT SIGNED.
--- NOTE | 2021-08-21 10:46 | PCM.PN.BLA ---
Progress Note Called to see the recovery room. Was having quite a bit of vaginal bleeding. She had bright red blood trickling from the vaginal vault. I packed the vagina with 3 radiopaque sponges. After 1 hour, she was bleeding through the sponges and still had bright red bleeding from the cervix. Decision was made to take her back to the operating room. Risk benefits and alternatives to cauterization of the cervix and control of postop cervical bleeding was discussed with the patient, her questions were answered to her satisfaction she desires to proceed.
--- NOTE | 2021-08-21 12:04 | OP.PCM_ITS ---
Problems Associated Problem List Diagnoses (1) Hemorrhage of cervix: Report of Operation Date of Procedure: 08/21/21 Pre-Operative Diagnosis: postop cervical bleeding Post-Operative Diagnosis: same Surgery/Procedure Performed:: COntrol of postoperative cervical bleeding Description of Surgical Findings:: bleeding from multiple areas of the cervical bed after cone biopsy Surgeon: Winnie Berger car body inspector: None Type of Anesthesia: General Anesthesiologist: Dari Cardona Special Medications: none Specimen's removed: none Drains: none Estimated Blood Loss (mL): 200 Fluids Replaced: 300 Description of Procedure: Patient was taken the operating room where she was prepped and draped in dorsolithotomy position. The cervix was visualized. The sutures that had been tied across the cervix were cut to allow visualization of the cervical bed. The piece of Surgicel that was in the cervical bed was removed. There is bleeding from multiple areas in the anterior and posterior lip of the cervix including deep inside near the endocervix. Decision was made to remove the IUD so does not involve the strings. Cauterization was used with ball cautery to try and cauterize the base of the cervix. However there continue to be active bleeding. Another deep suture was placed on the lateral cervix at 3 and 9:00. This he lped slow the bleeding a little. Every time I tried cauterized the cervical bed, the agnes would come off for the bleeding would continue through the chart. I did paly several sutures around bleeding areas and this helped with hemostasis but there continues to be one area deep in the cervix near the endocervix that I could not get with the suture. This point decision was made to proceed with Abdiaziz seal. The Floseal was readied and placed into the cervical os and pressure was held with sponges for 3 minutes. They were gently removed and the bleeding was had ceased. Then placed another piece of Surgicel over the cervix and tied cervix sutures at 3 and 9:00 across the to help hold it in place. Patient was observed for approximately 4 more minutes and there is no active bleeding from the cervix. Vaginal sweep was completed by me. Sponge and needle counts were correct and patient was taken recovery room in stable condition.. Grafts/Implants Used: none Procedure Start Time: 11:08 Procedure Stop Time: 11:54 Complications none Admit VTE Documentation VTE Present on Admission: No VTE Mechan Device Prophylaxis: SCD's VTE Pharm Prophylaxis ordered?: No Reason prophylaxis not ordered:: Procedure Not Indicated
== END 2021-08-21 14:55 | disposition home or self-care (01) ==
LOC: SDC 05:51 → AC 05:51
PROVIDERS: Anesthesiology; Referring Provider Obstetrics & Gynecology; Visit Provider Obstetrics & Gynecology
PROC: 0UBC7ZZ Excision of Cervix, Via Natural or Artificial Opening (ICD-10-PCS; CPT 57520; principal; 2021-08-21 07:15)
DX: D28.0 Benign neoplasm of vulva (principal); Z30.46 Encounter for surveillance of implantable subdermal contraceptive; D06.0 Carcinoma in situ of endocervix; Z30.430 Encounter for insertion of intrauterine contraceptive device; F41.9 Anxiety disorder, unspecified; F32.A Depression, unspecified; Z79.899 Other long term (current) drug therapy; N99.820 Postprocedural hemorrhage of a genitourinary system organ or structure following a genitourinary system procedure; Y83.8 Other surgical procedures as the cause of abnormal reaction of the patient, or of later complication, without mention of misadventure at the time of the procedure
CPT/HCPCS: 56605; 10120; 58300; 00940; 57505; 57510; 81025; 88305; 88307; 88341; 88342; J7120; J2405

== ENCOUNTER 2022-10-05 14:44 | Emergency (ER) | payer MEDICAID, SELFPAY ==
[2022-10-05] VITALS (7 sets, daily range): BP systolic 97–135; BP diastolic 59–102; PULSE 82–96; RESP 16–18; TEMP 36.4; O2SAT 98–100; BMI 32.5
--- NOTE | 2022-10-05 15:07 | ED.VIS.LOWEX ---
HPI History of Present Illness Chief Complaint: Lower Extremity Injury Detail of Chief Complaint: Injury to right knee Informant: patient Narrative Narrative: Patient presents to the emergency department complaint of an injury to the right knee that occurred prior arrival in the emergency department. Patient presents via EMS. Patient states that she had just come out of a shop when she stepped off a curb and her foot slipped and she fell directly onto her right knee. Patient unable to stand or bear weight afterwards. She denies any other injuries. 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 PFSH PFSH Medical History Abnormal Pap smear of cervix Anxiety Hx of drug abuse Smoker Home Medications buprenorphine 8 mg-naloxone 2 mg sublingual tablet 1 tab sublingual BID 10/17/20 [History Last Taken Unknown] quetiapine 50 mg tablet 200 mg PO DAILY 08/20/21 [History Last Taken Unknown] venlafaxine 150 mg capsule,extended release 24 hr (Effexor XR) 225 mg PO DAILY 08/20/21 [History Last Taken Unknown] naproxen 375 mg tablet 375 mg PO BID PRN pain 7 days #14 tabs 08/21/21 [Rx Last Taken Unknown] cephalexin 500 mg capsule 500 mg PO Q6 #40 CAPSULES 10/05/22 [Rx Last Taken Unknown] naproxen 500 mg tablet (Naprosyn) 500 mg PO BID PRN pain #20 tabs 10/05/22 [Rx Last Taken Unknown] tramadol 50 mg tablet 50 mg PO Q8H PRN pain #14 tabs 10/05/22 [Rx Last Taken Unknown] Allergy/AdvReac Type Severity Reaction Status Date / Time hydrocodone bitartrate AdvReac Mild Other Verified 08/21/21 06:29 [From Vicodin] diphenhydramine AdvReac Other Verified 08/21/21 06:29 propoxyphene napsylate AdvReac Other Verified 08/21/21 06:29 [From Darvocet-N] Family History Grandfather Cancer Lung Colon cancer Grandmother Breast cancer Surgical History H/O removal of cyst Social History Smoking Status: Current every day smoker tobacco type: cigarettes alcohol intake: never substance use type: does not use caffeine: Yes (5 hour energy) what type of physical activity do you participate in: none seatbelt use: always do you feel safe at home: Yes additional social history: Single ROS ROS ED Review of Systems ROS Unobtainable: other Constitutional Constitutional ED: Reports lethargy; Denies chills, fever(s), sweats or weight loss Eyes Eyes: Denies blurry vision, change in vision or diplopia ENT ENT ED: Denies rhinorrhea or sore throat Cardiovascular Cardiovascular: Denies chest pain, orthopnea or racing heartbeat Respiratory/Chest Respiratory/Chest: Denies cough, dyspnea, dyspnea on exertion, orthopnea or sputum Gastrointestinal Gastrointestinal: Denies abdominal pain, diarrhea, nausea or vomiting Genitourinary Genitourinary ED: Denies dysuria, hematuria or urinary frequency Musculoskeletal Musculoskeletal: Reports other Details: Right knee pain/injury ; Denies arthralgias, back pain, myalgias or neck pain Integumentary Denies abscess, Abrasions or rash Neurologic Neurologic: Denies headache(s) or weakness Psychiatric Psychiatric: Denies anxiety, depression or suicidal thoughts Endocrine Endocrinology: Denies polydipsia, polyphagia or polyuria Hematologic/Lymphatic Hematologic/Lymphatic: Denies easy bleeding, easy bruising or lymphadenopathy Allergic/Immunologic Allergic/Immunologic ED: Denies mouth swelling, tongue swelling or urticaria EXAM Physical Exam Const Vital Signs: 10/05/22 14:45 10/05/22 15:28 10/05/22 15:32 Temperature 97.6 F L Temperature Source Temporal Pulse Rate 95 96 Pulse Rate [1 (Initial Baseline)] 82 Pulse Rate [2] 83 Respiratory Rate 18 16 Respiratory Rate [1 (Initial Baseline)] 18 Respiratory Rate [2] 16 Blood Pressure 97/86 H 97/86 H Blood Pressure [1 (Initial Baseline)] 126/102 H Blood Pressure [2] 115/59 L Blood Pressure Mean 89 Pulse Ox 100 100 Oxygen Delivery Method Room Air Nasal Cannula Oxygen Delivery Method [1 (Initial Baseline)] Nasal Cannula Oxygen Delivery Method [2] Nasal Cannula Oxygen Flow Rate (L/min) 5 Oxygen Flow Rate (L/min) [1 (Initial Baseline)] 6 Oxygen Flow Rate (L/min) [2] 100 10/05/22 15:35 10/05/22 15:40 10/05/22 15:45 Temperature Temperature Source Pulse Rate Pulse Rate [1 (Initial Baseline)] Pulse Rate [2] Respiratory Rate Respiratory Rate [1 (Initial Baseline)] Respiratory Rate [2] Blood Pressure Blood Pressure [1 (Initial Baseline)] Blood Pressure [2] Blood Pressure Mean Pulse Ox Oxygen Delivery Method Room Air Room Air Room Air Oxygen Delivery Method [1 (Initial Baseline)] Oxygen Delivery Method [2] Oxygen Flow Rate (L/min) Oxygen Flow Rate (L/min) [1 (Initial Baseline)] Oxygen Flow Rate (L/min) [2] Positive well nourished and well developed General Appearance ED: well developed and NAD HEENT Reports TM's clear and moist mucous membranes normocephalic and atraumatic; Negative for trauma or tenderness Tympanic Membrane ED: Yes TM's clear Eyes PERRL and EOMs intact bilaterally General Eye ED: Negative for pale conjunctiva or scleral icterus Neck no lymphadenopathy, supple and no JVD General: Negative for tenderness Chest Wall inspection of chest normal and palpation of chest normal Chest: Negative for tenderness Resp normal respiratory effort and clear to auscultation bilaterally Effort and Inspection: Negative for respiratory distress or pain with movement Auscultation: Negative for rhonchi, wheezes or diminished lung sounds Cardio regular rate, regular rhythm, S1 normal heart sound, S2 normal heart sound and no murmurs Peripheral Pulses: pulses 2+ throughout GI normal to inspection, nondistended, normoactive bowel sounds, soft to palpation, non-tender, non-distended and no masses Back/Spine no CVA tenderness and no thoracic nor lumbar tenderness Extremity normal to inspection Extremity Narrative: Right knee-patient has obvious deformity over the patella. She holds the knee flexed. She does not want to extend it. She is neurovascular intact distally. She has a superficial abrasion over the area of the patella. General Extremety ED: Negative for edema General Extremity: Negative for edema Neuro oriented x3, CN's II-XII intact bilaterally, no sensory deficits noted and gait normal Sensorium / Orientation: awake, alert, oriented to person, oriented to place and oriented to time Motor Exam: strength 5/5 throughout and strength abnormal Psych mental status grossly normal Skin no rashes or lesions noted and no wounds MDM MDM MDM Narrative Medical decision making narrative: Initial portable x-rays obtained of right knee showed a fracture through the mid pole of the patella with the proximal fragment retracted proximally. Patient had to be sedated with propofol to attempt to straighten her leg and place her in a knee immobilizer. Please see procedural sedation note. Patient had repeat x-rays when she was placed in a knee immobilizer and I do not appreciate any other fractures. She does have a very small superficial abrasion over the anterior aspect of the patella. I do not think this is an open fracture but rather more of an abrasion. I discussed case with orthopedic surgeon Dr. Waller. I will cover her with Keflex and she can follow-up with his office as she will likely require surgical intervention. Patient was given Adacel tetanus booster. Patient will given crutches. She is instructed to ice and elevate the extremity. Patient to follow-up with orthopedics. She is to return if increasing pain, redness, swelling, or condition worsening way. Radiography Diagnostic Testing: Clinical Impression(s) from Imaging Studies Knee X-Ray 10/05/22 15:15 IMPRESSION: Transverse fracture of the midportion of the patella with retraction of the fracture fragments. Electronically Signed: Jaime Alarcon MD at 15:27 EDT , 2 view x-rays of right knee obtained showed fracture of the patella. Radiology in agreement. 2 view x-rays of right knee post procedural sedation and extension of the knee reveals the patellar fracture and I do not appreciate any other fractures. Procedures Procedural Sedation 1 (Initial Baseline): Consent Signed: Yes Any Problems With Anesthesia: No You/Your family experience fever (hyperthermia) w/anesthesia: No Sedation medication: Propofol Dose: 180 Route: IV Total Moderate Sedation Units: 180 Maliampati Score: Class I ASA Classification: I Comment:: Procedure time 10 minutes Discharge Plan Triage Chief Complaint: Lower Extremity Injury ED Provider: Marybel Cordon Dx/Rx/DC Orders Clinical Impression: Fracture, patella Instructions: ED Patella Fracture Prescriptions: New tramadol 50 mg tablet 50 mg PO Q8H PRN (Reason: pain) Qty: 14 0RF cephalexin [cephalexin] 500 mg capsule 500 mg PO Q6 Qty: 40 0RF naproxen [Naprosyn] 500 mg tablet 500 mg PO BID PRN (Reason: pain) Qty: 20 0RF No Action buprenorphine-naloxone 8-2 mg Tablet, Sublingual 1 tab SUBLINGUAL BID venlafaxine [Effexor XR] 150 mg Capsule,Extended Release 24hr 225 mg PO DAILY quetiapine 50 mg tablet 200 mg PO DAILY naproxen 375 mg tablet 375 mg PO BID PRN (Reason: pain) 7 Days Qty: 14 0RF Primary Care Provider: Care Physician,No Primary Referrals: Davin Waller DO [Med Staff - Active Staff] - 3-5 Days Care Physician,No Primary [Primary Care Provider] - Disposition Disposition: Home, Self Care
--- NOTE | 2022-10-05 15:15 | RAD_ITS ---
STUDY: X-RAY - RIGHT KNEE REASON FOR EXAM: Female, 37 years old. Pain following a fall. TECHNIQUE: 2 view(s) of the knee. COMPARISON: None. FINDINGS: Normal visualized distal femur. Normal visualized proximal tibia and fibula. Normal proximal tibiofibular articulation. Transverse fracture through the midportion of patella with retraction of the fracture fragment superiorly and inferiorly. Normal medial femorotibial compartment. Normal lateral femorotibial compartment. Normal patellofemoral articulation. Small joint effusion. RAD/Knee 1 or 2 Views IMPRESSION: Transverse fracture of the midportion of the patella with retraction of the fracture fragments. Electronically Signed: Jaime Alarcon MD at 15:27 EDT ,
[2022-10-05] MEDS: Propofol 200 MG/20 ML Vial IV BOLUS (15:24)
--- NOTE | 2022-10-05 15:45 | RAD_ITS ---
INDICATION: post extension of knee EXAMINATION/TECHNIQUE: X-RAY - RIGHT XR Knee 2 VIEWS COMPARISON: FINDINGS: SOFT TISSUES: There is prepatellar soft tissue injury with swelling and subcutaneous gas. No radiopaque foreign body. BONES/JOINTS: There is a patellar fracture.. Normal alignment. Preservation of the joint space.. No sclerotic or destructive changes observed. RAD/Knee 1 or 2 Views IMPRESSION: Compound patellar fracture. Electronically Signed: Justin Rodriguez DO at 16:51 EDT ,
[2022-10-05] MEDS: Diphth,Pertuss(Acell),Tet Vac 0.5 ML Vial IM (15:59)
[2022-10-05] MEDS: Cephalexin 250 MG Capsule 500 MG PO (16:47)
== END 2022-10-05 17:04 | disposition home or self-care (01) ==
PROVIDERS: Emergency Provider Emergency Medicine; Visit Provider Emergency Medicine
DX: S82.031A Displaced transverse fracture of right patella, initial encounter for closed fracture (principal); W10.1XXA Fall (on)(from) sidewalk curb, initial encounter; F41.9 Anxiety disorder, unspecified; Z79.899 Other long term (current) drug therapy; F17.210 Nicotine dependence, cigarettes, uncomplicated; Z23 Encounter for immunization
CPT/HCPCS: 73560; 90471; 90715; 99152; 99285

== ENCOUNTER 2022-10-09 13:25 | Inpatient (IN) | payer MEDICAID, SELFPAY ==
[2022-10-09 13:11] VITALS: BMI 32.3
--- NOTE | 2022-10-09 13:39 | NURSING ---
pt is x-opioid/meth user - states uses toradol for pain will also take ibuprofen or naproxyn. Does not want any narcotics. pt has been clean for 2.5 years. pt does take subox
[2022-10-09 14:04] LABS: Absolute Lymphocyte Count 2.03 X10^3/uL (0.83-4.51); Basophil# 0.04 X10^3/uL; Basophil% 0.5 % (0-1); Eosinophil# 0.17 X10^3/uL; Eosinophils% 2.2 % (0-5); Hematocrit 36.4 % (37-47); Hemoglobin 11.7 g/dL (12.0-15.0); Lymphocyte # 2.03 X10^3/ul (0.83-4.51); Lymphocyte % 26.3 % (19-41); Mean Corp Hgb Conc 32.1 g/dL (32-36); Mean Corpuscular Hgb 31.9 pg (27.0-32.0); Mean Corpuscular Volume 99.2 fL (81-99); Mean Platelet Vol. 10.3 fl (6.2-12.0); Monocyte# 0.41 X10^3/uL; Monocyte% 5.3 % (0-10); NRBC Flagged by Analyzer 0 % (0-5); Neutrophil # 5.04 X10^3/uL (2.7-7.7); Neutrophil % 65.4 % (47-70); Platelet Count 248 K/mm3 (150-450); RBC Distribution Width CV 12.9 % (11.6-14.6); RBC Distribution Width SD 46.5 fl (35.1-43.9); Red Blood Count 3.67 M/mm3 (4.2-5.4); White Blood Count 7.7 K/mm3 (4.4-11.0)
[2022-10-09 14:30] LABS: AST(SGOT) 18 U/L (15-37); Alanine Aminotransfer ALT/SGPT 32 U/L (13-56); Albumin, Serum 3.5 g/dL (3.2-5.0); Alkaline Phosphatase 72 U/L (45-117); Anion Gap 3 (5-15); BUN 9 mg/dL (7-18); BUN/Creat Ratio 13.4 RATIO (10-20); Calcium,Total 8.9 mg/dL (8.5-10.1); Chloride 107 mmol/L (98-107); Creatinine, Serum 0.67 mg/dL (0.55-1.02); EST Glomerular Filtration Rate 105 mL/min (>60); Est Glom Filt Rate - Afr Amer 128 mL/min (>60); Estimated Creatinine Clearance 121.31 ml/min; Globulin 3.4 g/dL (2.2-4.2); Glucose 127 mg/dL (74-106); Potassium 3.9 mmol/L (3.5-5.1); Protein, Total 6.9 g/dL (6.4-8.2); Sodium Level 138 mmol/L (136-145)
--- NOTE | 2022-10-09 14:52 | CASEMGMT ---
DUYEN IRAHETA Assessment: Face to Face with pt for initial transition planning/care coordination assessment. DUYEN IRAHETA introduced self and role at [facility], pt voices understanding and consents to assessment. Pt is A/O x4 and answers all questions appropriately at this time. Pt sitting up in bed in no distress with her on speakerphone. Pt completed assessment with on the phone. Care providers, pharmacy, and demographics verified/updated. Admitting Dx: R patella open fracture PCP:Pt denies, provided pt with a local healthcare directory pamphlet Specialists:[facility] ortho; Ab, [employer] TECHNICIAN, Kevin, addiction medicine; [facility]: [facility] Insurance: [employer] [facility] Prescription Benefit: yes LNOK: Danilo Ugalde, ; Veronica Hawkins, sister Living Arrangements: Pt lives with in a modular home with 2 steps to enter without a rail. Pt reports she was I in ADL's prior to fall. Pt denies concerns at home. Transportation: Pt drives self and denies concerns with transportation. Pt to transport pt until she can drive again. DME/HHC/SNF: Pt has access to crutches, FWW x2, shower chair, w/c, BSC and hoverround. Pt denies hx of HHC or SNF stays. Pt states no concerns with going home at time of dc. Pt is WBAT. Pt states no further concerns/needs. CM to follow. Advised pt to ask CM if any further question/concerns/needs arise, voices understanding. Pt Goal: Home Plan: Home
[2022-10-09 15:00] VITALS: BP 130/85; PULSE 86; RESP 16; TEMP 36.9; O2SAT 99
[2022-10-09] MEDS: Lactated Ringers 1,000 ML 125 ML IV (15:18)
[2022-10-09] MEDS: Cefazolin 2 GM in 0.9% Normal Saline 100 ML IV ×2 (15:18→21:42)
[2022-10-09] MEDS: Acetaminophen 500 MG Tablet 1000 MG PO ×2 (15:24→21:43)
--- NOTE | 2022-10-09 17:28 | PCM.HP.STD ---
HPI - General General Date of Admission: 10/09/22 HPI Narrative MAR ACOSTA, is a 37 F who sustained a fall onto a flexed right knee on 10/05/2022 after she was exiting a local store stepping down off a curb in the rain. She states her left foot went out from under her and she fell with her full body weight onto her right flexed knee. She noted immediate pain and deformity about the right knee as well as some bleeding. She was brought to [facility] emergency department the day of the injury. X-rays revealed a displaced patella fracture. I was called from the emergency department. The emergency room physician noted abrasion over the anterior knee but did not feel this was an open fracture. She was subsequently discharged on oral Keflex and tetanus was updated at the emergency department. She was placed in a knee immobilizer at that time. She followed up in our office today. X-rays were reviewed and subcutaneous gas was noted about the fracture site consistent with open fracture. I recommended direct admission to the hospital to initiate IV antibiotic therapy and proceed with urgent and irrigation and debridement and open reduction internal fixation right patella. At time my examination this evening, patient denies any complaints other than her right knee pain. She states she has minimal pain at rest but notes pain with any attempted motion of the right knee. She denies any history of right knee issues or surgery. Patient has a history of opioid addiction and has been in remission for several years. She has been taking Suboxone for several years without issue. She reports a history of anxiety and depression. She denies any other past significant medical history. She denies any problems with anesthesia. Her surgical history includes a cyst removal when she was 6 years old along her left maxilla. Denies history of VTE. She denies any current use of hormonal contraceptive. She denies fevers, chills, nausea vomiting, chest pain or shortness of breath. [facility] Medical History Abnormal Pap smear of cervix Anxiety Hx of drug abuse Restless legs Smoker Home Medications buprenorphine 8 mg-naloxone 2 mg sublingual tablet 1 tab sublingual BID 10/17/20 [History Last Taken Unknown] quetiapine 50 mg tablet 200 mg PO .hs 08/20/21 [History Last Taken Unknown] venlafaxine 150 mg capsule,extended release 24 hr (Effexor XR) 225 mg PO DAILY 08/20/21 [History Last Taken Unknown] naproxen 375 mg tablet 375 mg PO BID PRN pain 7 days #14 tabs 08/21/21 [Rx Last Taken Unknown] cephalexin 500 mg capsule 500 mg PO Q6 #40 CAPSULES 10/05/22 [Rx Last Taken Unknown] naproxen 500 mg tablet (Naprosyn) 500 mg PO BID PRN pain #20 tabs 10/05/22 [Rx Last Taken Unknown] tramadol 50 mg tablet 50 mg PO Q8H PRN pain #14 tabs 10/05/22 [Rx Last Taken Unknown] quetiapine 50 mg tablet,extended release 24 hr 50 mg PO DAILY 10/09/22 [History Last Taken Unknown] Allergy/AdvReac Type Severity Reaction Status Date / Time hydrocodone bitartrate AdvReac Mild Other Verified 08/21/21 06:29 [From Vicodin] diphenhydramine AdvReac Other Verified 08/21/21 06:29 propoxyphene napsylate AdvReac Other Verified 08/21/21 06:29 [From Darvocet-N] Family History Grandfather Cancer Lung Colon cancer Grandmother Breast cancer Surgical History H/O removal of cyst Social History Smoking Status: Current every day smoker tobacco type: cigarettes alcohol intake: never substance use type: does not use caffeine: Yes (5 hour energy) what type of physical activity do you participate in: none seatbelt use: always do you feel safe at home: Yes additional social history: Single ROS ROS Narrative 12 point review systems obtained, negative as otherwise noted in HPI. Vital Signs Vital Signs Vital Signs: 10/09/22 15:00 Temperature 98.5 F Temperature Source Oral Pulse Rate 86 Respiratory Rate 16 Blood Pressure 130/85 H Blood Pressure Mean 100 Blood Pressure Source Monitor Blood Pressure Position Semi-Fowlers Blood Pressure Location Right Arm Pulse Ox 99 Oxygen Delivery Method Room Air Weight Weight: 219 lb Body Mass Index (BMI) 32.3 Physical Exam Narrative General -A&Ox3, NAD, appears stated age. Vital signs stable, afebrile. Respiratory -normal work of breathing, no intercostal retractions. CV -pulses regular, brisk capillary refill ?4 limbs. Abdomen-soft, nontender, nondistended. No guarding, rigidity, rebound tenderness. Musculoskeletal/neurologic -full range of motion nontender throughout bilateral upper extremities, left lower extremity with full sensation and strength in all dermatomes and myotomes. No midline cervical tenderness. Right lower extremity-obvious deformity noted at the patella. 3 x 3 mm puncture wound noted at the level of the fracture. Unable to perform straight leg raise. Diastases of fracture is palpated through the skin. 1+ right knee effusion. No active bleeding from the wound. No erythema. Nontender throughout the remainder of the knee and lower extremity. Brisk capillary refill. Sensation intact light touch L3-S1 dermatomes. DF, PF, EHL intact. DP, PT 2+. Pelvis is stable, nontender. Skin is intact without lacerations, abrasions. No ecchymosis noted. Results Lab / Micro Data 10/09/22 13:53 10/09/22 13:53 Labs: Laboratory Results - last 24 hr 10/09/22 13:53: WBC 7.7, RBC 3.67 L, Hgb 11.7 L, Hct 36.4 L, MCV 99.2 H, MCH 31.9, MCHC 32.1, RDW Std Deviation 46.5 H, RDW Coeff of Babatunde 12.9, Plt Count 248, MPV 10.3, Immature Gran % (Auto) 0.300, Neut % (Auto) 65.4, Lymph % (Auto) 26.3, Pendleton % (Auto) 5.3, Eos % (Auto) 2.2, Baso % (Auto) 0.5, Absolute Neuts (auto) 5.0, Absolute Lymphs (auto) 2.03, Nucleated RBC % 0, Sodium 138, Potassium 3.9, Chloride 107, Carbon Dioxide 28.0, Anion Gap 3 L, BUN 9, Creatinine 0.67, Estim Creat Clear Calc 121.31, Est GFR (MDRD) Af Amer 128, Est GFR (MDRD) Non-Af 105, BUN/Creatinine Ratio 13.4, Glucose 127 H, Calcium 8.9, Total Bilirubin 0.20, AST 18, ALT 32, Alkaline Phosphatase 72, Total Protein 6.9, Albumin 3.5, Globulin 3.4, Albumin/Globulin Ratio 1.0 Assessment & Plan Assessment/Plan (1) Open displaced fracture of right patella: QUALIFIERS: Encounter type: initial encounter Open fracture type: open type I or II Fracture morphology: transverse Qualified Code(s): S82.031B - Displaced transverse fracture of right patella, initial encounter for open fracture type I or II PLAN: Patient sustained a open fracture of the right patella. Given the delayed presentation, I recommended urgent irrigation debridement with open reduction internal fixation right patella. IV Ancef was started upon admission today. We will plan to proceed with surgical intervention tomorrow morning. I discussed the risks, benefits, terms the procedure with the patient. Risks include but are not limited to bleeding, flexion, loss of life or limb, need for additional surgery, persistent pain, symptomatic hardware, posttraumatic arthritis, neurovascular injury, DVT or PE, stiffness, nonhealing bone or wounds. Patient expressed understanding of these risks and wished proceed with surgery. Informed consent obtained. N.p.o. after midnight tonight Scheduled Ancef Maintenance IV fluids Weightbearing as tolerated right lower extremity with knee immobilizer Ice to right knee Plan for 24 hours IV antibiotics following surgical intervention Plan for multimodal pain management postoperatively to mitigate opioid use. Patient is comfortable with oral Tylenol and tramadol currently.
[2022-10-09 19:55] LABS: Internal QC Validated? YES +Cl - CLEAR BKGD; Pregnancy, Urine Negative Negative
[2022-10-09] MEDS: QUEtiapine 100 MG Tablet PO (21:43)
[2022-10-09 22:00] VITALS: BP 100/65; PULSE 65; RESP 18; TEMP 36.8; O2SAT 98
[2022-10-10] VITALS (10 sets, daily range): BP systolic 97–127; BP diastolic 58–95; PULSE 65–108; RESP 15–18; TEMP 36.7–37.2; O2SAT 94–100
[2022-10-10] MEDS: Lactated Ringers 1,000 ML 125 ML IV ×3 (00:54→19:35)
--- NOTE | 2022-10-10 07:04 | RAD_ITS ---
STUDY: X-RAY - RIGHT KNEE REASON FOR EXAM: Female, 37 years old. ORIF PATELLA TECHNIQUE: 2 view(s) of the knee. COMPARISON: 10/05/2022 FINDINGS: Fluoroscopy of the right knee was utilized operating room during open reduction internal fixation of patellar fracture and for images are submitted for interpretation.. . RAD/Knee 1 or 2 Views IMPRESSION: Fluoroscopy during open reduction internal fixation of patellar fracture. Electronically Signed: Luis Bhakta MD at 14:58 EDT ,
[2022-10-10] MEDS: Cefazolin 2 GM in 0.9% Normal Saline 100 ML IV ×3 (08:02→21:44)
[2022-10-10] MEDS: Lactated Ringers 1,000 ML 15 ML IV (08:52)
[2022-10-10] MEDS: Vancomycin IV 1,000 MG/20 ML Vial 1000 MG OPERA.SITE (09:54)
--- NOTE | 2022-10-10 10:32 | PCM.OPRPT ---
Report of Operation Date of Procedure: 10/10/22 Description of Surgical Findings:: Preoperative diagnosis: Grade 1 right patella open fracture with traumatic arthrotomy Postoperative diagnosis: Grade 1 right patella comminuted open fracture with traumatic arthrotomy Procedure: 1. Irrigation and debridement right knee/patella of skin, subcutaneous tissue, joint capsule and bone 2. Open reduction internal fixation right patella Surgeon: Davin Waller DO Cable Maker: GARRICK Rivera Anesthesia: Spinal sedation Anesthesiologist: Jules Cristobal MD Complications: None Drains: None Estimated blood loss: 50 cc Urinary output: None recorded IV fluids: 2 L crystalloid Specimens: None Surgical implants: Arthrex titanium patella suture plate II, #2 FiberWire suture Surgical indications: MAR ACOSTA, is a 37 F who sustained a fall onto a flexed right knee on 10/05/2022 after she was exiting a local store stepping down off a curb in the rain. She states her left foot went out from under her and she fell with her full body weight onto her right flexed knee. She noted immediate pain and deformity about the right knee as well as some bleeding. She was brought to [facility] emergency department the day of the injury. X-rays revealed a displaced patella fracture. I was called from the emergency department. The emergency room physician noted abrasion over the anterior knee but did not feel this was an open fracture. She was subsequently discharged on oral Keflex and tetanus was updated at the emergency department. She was placed in a knee immobilizer at that time. She followed up in our office today. X-rays were reviewed and subcutaneous gas was noted about the fracture site consistent with open fracture. I recommended direct admission to the hospital to initiate IV antibiotic therapy and proceed with urgent and irrigation and debridement and open reduction internal fixation right patella. I discussed the risks, benefits, terms the procedure with the patient. Risks include but are not limited to bleeding, flexion, loss of life or limb, need for additional surgery, persistent pain, symptomatic hardware, posttraumatic arthritis, neurovascular injury, DVT or PE, stiffness, nonhealing bone or wounds. Patient expressed understanding of these risks and wished proceed with surgery. Informed consent obtained. Description of procedure: Patient was identified in the preoperative holding area by name, medical record number, and date of . The operative extremity was marked. Informed consent was confirmed with the patient. All questions were answered to his satisfaction. At time of her procedure, patient was brought to the operative suite and positioned in a seated on a standard operating table. All bony prominences were well-padded. Spinal anesthesia was administered in the operating room. Gentle MAC anesthesia was then induced. Patient was positioned in the supine position. All bony prominences were well-padded. A well-padded pneumatic tourniquet was applied to right upper thigh. We then prepped and draped the right lower extremity in a normal, sterile orthopedic fashion after placing a bump under the patient's right hip and elevating the operative lower extremity slightly on bath blankets. 2 g Ancef was administered prior to the incision by anesthesia staff. We then performed a timeout with all parties in attendance in agreement with the side, site, and operation be performed. No concerns were voiced and we elected to proceed. I first exsanguinated the left lower extremity and Esmarch bandage. Tourniquet was inflated 280 mmHg remained up for approximately 90 minutes. Esmarch was removed. The small puncture wound was identified overlying the defect in the patella. A an 8 cm longitudinal incision was made sharply through skin and subcutaneous tissue. The adjacent dermis and epidermis of the puncture wound was excised. Necrotic tissue was debrided in the subcutaneous plane as well as bursa. The remaining bursa was opened and the retinacular layer was developed. Fracture was encountered as well as the traumatic arthrotomy. There was retinacular tearing to the mid coronal line both medially and laterally. No evidence of infection was encountered. Bone ends were debrided of loose pieces of comminution. Any necrotic appearing tissue was debrided sharply with a 10 blade scalpel. The knee was then thoroughly irrigated with 3 L of normal saline solution via cystoscopy tubing. Hemostasis was excellent at this point. I then proceeded with reduction of the patella. Fracture was examined and demonstrated a cruciate pattern with 2 large fragments encompassing the inferior and superior poles. Smaller medial and lateral fragments were noted that were attached to retinaculum. Cartilage was examined and appeared pristine other than the fracture lines. I attempted placing a large pointed reduction clamp at the inferior and superior poles of patella to reapproximate the transverse fracture line. This reapproximated the dorsal cortex well. I placed 2 K wires parallel with each other from the inferior pole. I drilled for a unicortical 403 partially-threaded cancellous screw that achieved excellent cortical purchase and compression. Fluoroscopy demonstrated a coronal split through the inferior pole fragment with none congruent articular surface. Screw was then removed. I then placed a smaller pointed reduction clamp to compress the coronal split in the inferior fracture. This was held in place with K wires and the clamp was removed. I then trialed different plates for appropriate positioning. I elected for the large patellar suture plate with inferior pole hooks to allow for additional purchase given the comminution. Implant was opened in position. This was held in position with a threaded BB tack. Appropriate plate position was confirmed on fluoroscopy. I then compressed the plate to bone with a distal unicortical Kreulock compression locking screw. I then attempted to the lag the coronal split in the inferior pole with a unicortical Kreulock screw. This achieved excellent compression and purchase. I then proceeded with locking screw fixation in several remaining holes of the plate. The medial and lateral fragments were outside of the plate contour. I elected to fix these with a cerclage suture. This was weaved through the retinaculum beginning at the quadriceps tendon in standard cerclage fashion passing it through the suture holes of the plate for additional fixation. Final fluoroscopic images were obtained. Screws were scrutinized and appeared outside of the articular surface. The knee was bent to 30 degrees and the patella fixation was stable. Tourniquet was deflated. Hemostasis achieved with Bovie cautery. Retinaculum was closed watertight with [id number] #2 FiberWire in interrupted fashion. 1 g vancomycin powder was placed in the bursal layer to mitigate risk of infection. The bursa was closed with interrupted [id number] #1 Vicryl suture. Dermis was reapproximated with buried 2?0 intradermal Vicryl suture. Skin was finally reapproximated with interrupted simple 2-0 nylon suture. A sterile silver compression dressing was applied. ABDs, Webril, and Anthony wrap applied to the right knee. Patient was placed in a T ROM hinged knee brace locked in full extension. She was awoken from MAC anesthesia and transferred to her hospital bed insufflated PACU in stable condition. She tolerated procedure well without apparent complication. Post Operative Plan: Pain management: Given her history of opioid addiction, we will mitigate use of opioids with multimodal pain approach. Patient will receive a femoral nerve block in the PACU. Scheduled Toradol, gabapentin, Tylenol and tramadol ordered. Weightbearing: Weightbearing as tolerated right lower extremity -hinged knee brace locked in extension at all times. To be removed only for hygiene purposes, at which time the knee should not be flexed. Antibiotics: 24 hours IV Ancef postoperatively, plan for discharged home on 1 week of oral Keflex DVT Prophylaxis: SCDs, 81 mg aspirin twice daily Cowan: None Dressing: Maintain surgical silver dressing x5 days, then okay to remove X-Rays: None Follow-up: 2 weeks in my office
[2022-10-10] MEDS: Ketorolac 30 MG/ML Syringe IM (10:37)
[2022-10-10] MEDS: Acetaminophen 500 MG Tablet 1000 MG PO ×3 (10:54→21:45)
[2022-10-10] MEDS: Gabapentin 300 MG Capsule PO ×2 (10:56→19:35)
[2022-10-10] MEDS: buprenorphine HCL 8 MG TAB.SUBL SL ×2 (10:58→21:44)
[2022-10-10] MEDS: Venlafaxine XR 75 MG Capsule 225 MG PO (11:45)
[2022-10-10] MEDS: QUEtiapine 100 MG Tablet PO ×2 (11:45→21:45)
[2022-10-10] MEDS: QUEtiapine 25 MG Tablet 50 MG PO (11:46)
[2022-10-10] MEDS: HYDROmorphone 1 MG/ML Syringe IV (13:20)
[2022-10-10] MEDS: Famotidine 20 MG Tablet 40 MG PO (14:27)
[2022-10-10] MEDS: traMADol 50 MG Tablet PO (17:49)
[2022-10-10] MEDS: Ketorolac 30 MG/ML Syringe IV (19:32)
[2022-10-10] MEDS: Aspirin 81 MG TAB.CHEW PO (21:44)
[2022-10-11 03:00] VITALS: BP 108/66; PULSE 87; RESP 17; TEMP 36.8; O2SAT 95
[2022-10-11] MEDS: traMADol 50 MG Tablet PO ×2 (03:33→10:01)
[2022-10-11] MEDS: Lactated Ringers 1,000 ML 125 ML IV (03:34)
[2022-10-11] MEDS: Ketorolac 30 MG/ML Syringe IV (05:40)
[2022-10-11] MEDS: Cefazolin 2 GM in 0.9% Normal Saline 100 ML IV (05:41)
[2022-10-11] MEDS: Acetaminophen 500 MG Tablet 1000 MG PO (05:41)
[2022-10-11] MEDS: Aspirin 81 MG TAB.CHEW PO (06:36)
[2022-10-11] MEDS: Gabapentin 300 MG Capsule PO (06:36)
[2022-10-11] MEDS: buprenorphine HCL 8 MG TAB.SUBL SL (09:59)
[2022-10-11] MEDS: Famotidine 20 MG Tablet 40 MG PO (10:00)
[2022-10-11] MEDS: Senna/Docusate Sodium 1 Tablet PO (10:00)
[2022-10-11] MEDS: Venlafaxine XR 75 MG Capsule 225 MG PO (10:00)
[2022-10-11] MEDS: QUEtiapine 25 MG Tablet 50 MG PO (10:01)
[2022-10-11] MEDS: QUEtiapine 100 MG Tablet PO (10:01)
[2022-10-11 10:32] VITALS: BP 129/72; PULSE 81; RESP 18; TEMP 36.6; O2SAT 98
--- NOTE | 2022-10-11 10:59 | PCM.PN.ORT ---
Subjective Subjective Patient seen and examined. Denies new complaints. She feels her pain regimen is controlling her pain adequately but is requesting increased tramadol to help with pain. Denies any fevers, chills, nausea vomiting, chest pain or shortness of breath. Objective Data Objective Data Vital Signs: Vital Signs Temp Pulse Resp BP Pulse Ox O2 Del Method 97.9 F 81 18 129/72 H 98 Room Air 10/11/22 10:32 10/11/22 10:32 10/11/22 10:32 10/11/22 10:32 10/11/22 10:32 10/11/22 10:32 Oxygen Delivery Method Room Air Weight: 219 lb Body Mass Index (BMI) 32.3 Intake & Output: Intake and Output for Last 24 Hours 10/09/22 10/10/22 10/11/22 23:59 23:59 23:59 Intake Total 422.08 / 422.08 4518.09 / 4918.09 1607.92 / 1607.92 Output Total 500 / 1300 1050 / 1050 Balance 422.08 / 422.08 4018.09 / 3618.09 557.92 / 557.92 Lab / Micro Data 10/09/22 13:53 10/09/22 13:53 Radiography Diagnostic Testing: Radiology Impression Knee X-Ray 10/10/22 07:04 IMPRESSION: Fluoroscopy during open reduction internal fixation of patellar fracture. Electronically Signed: Luis Bhakta MD at 14:58 EDT , Physical Exam Narrative General - A&Ox3, NAD. VSS/AF Right lower extremity -incisional dressing C/D/I. SILT Sural, Saphenous, SPN, DPN, Tibial N. distributions. DP, PT 2+. BCR. DF, PF, EHL /. No calf TTP. Assessment & Plan Assessment/Plan (1) Open displaced fracture of right patella: QUALIFIERS: Encounter type: initial encounter Open fracture type: open type I or II Fracture morphology: transverse Qualified Code(s): S82.031B - Displaced transverse fracture of right patella, initial encounter for open fracture type I or II PLAN: POD#1 s/p right patella I&D, ORIF - Pain control -increase tramadol to 50?100 mg every 8 hours. Plan for discharge on oral Toradol, Neurontin, Tylenol and tramadol. She is to continue her Suboxone. -Complete 24 hours IV Ancef following surgery. She will finish her remaining 7 days of Keflex upon discharge. - PT/OT -weightbearing as tolerated right lower extremity, hinged knee brace locked in extension at all times removing only for hygiene purposes. Knee should remain fully extended at all times. - DVT PPX -Multimodal with aspirin, SCDs, TAHIR hose, early mobilization -Discharge home today after morning therapies.
--- NOTE | 2022-10-11 11:09 | PCM.DC.SUM ---
Providers Date of Admission: 10/09/22 Primary Care Physician: Jackelyn Primary Care Phys Reason For Visit: RIGHT PATELLA OPEN FRACTURE Diagnosis Discharge Diagnosis (1) Open displaced fracture of right patella: Status: Acute Code(s): S82.001B - Unspecified fracture of right patella, initial encounter for open fracture type I or II Qualifiers: Encounter type: initial encounter Open fracture type: open type I or II Fracture morphology: transverse Qualified Code(s): S82.031B - Displaced transverse fracture of right patella, initial encounter for open fracture type I or II Plan: POD#1 s/p right patella I&D, ORIF - Pain control -increase tramadol to 50?100 mg every 8 hours. Plan for discharge on oral Toradol, Neurontin, Tylenol and tramadol. She is to continue her Suboxone. -Complete 24 hours IV Ancef following surgery. She will finish her remaining 7 days of Keflex upon discharge. - PT/OT -weightbearing as tolerated right lower extremity, hinged knee brace locked in extension at all times removing only for hygiene purposes. Knee should remain fully extended at all times. - DVT PPX -Multimodal with aspirin, SCDs, TAHIR hose, early mobilization -Discharge home today after morning therapies. Medications at Discharge Home Medications buprenorphine 8 mg-naloxone 2 mg sublingual tablet 1 tab sublingual BID 10/17/20 quetiapine 50 mg tablet 200 mg PO .hs 08/20/21 venlafaxine 150 mg capsule,extended release 24 hr (Effexor XR) 225 mg PO DAILY 08/20/21 naproxen 375 mg tablet 375 mg PO BID PRN pain 7 days #14 tabs 08/21/21 cephalexin 500 mg capsule 500 mg PO Q6 #40 CAPSULES 10/05/22 naproxen 500 mg tablet (Naprosyn) 500 mg PO BID PRN pain #20 tabs 10/05/22 tramadol 50 mg tablet 50 mg PO Q8H PRN pain #14 tabs 10/05/22 quetiapine 50 mg tablet,extended release 24 hr 50 mg PO DAILY 10/09/22 acetaminophen 500 mg tablet 1,000 mg (2 x 500 mg) PO Q8 14 days #84 tabs 10/11/22 aspirin 81 mg chewable tablet 81 mg PO BIDCM 28 days #56 tabs 10/11/22 gabapentin 300 mg capsule 300 mg PO TIDCM 14 days #42 caps 10/11/22 ketorolac 10 mg tablet 10 mg PO Q6H PRN pain 3 days #12 tabs 10/11/22 tramadol 50 mg tablet 100 mg (2 x 50 mg) PO Q8H PRN pain 7 days #42 tabs 10/11/22 Hospital Course Summary of Care Provided Minutes Spent on Discharge: 20 Hospital Course: Patient underwent uncomplicated right patella irrigation and debridement, open reduction internal fixation 10/10/2022. She was admitted for IV antibiotics and therapies. After completing 24 hours of antibiotics, patient will be discharged on 1 week of oral Keflex. She worked well with PT/OT. Pain was adequately controlled on postoperative day #1 and she was able to be safely discharged home in stable condition. No medical or surgical complications were encountered throughout her stay. Physical Exam Narrative General - A&Ox3, NAD. VSS/AF Right lower extremity -incisional dressing C/D/I. SILT Sural, Saphenous, SPN, DPN, Tibial N. distributions. DP, PT 2+. BCR. DF, PF, EHL 5/5. No calf TTP. Weight / BMI Weight Weight: 219 lb Body Mass Index (BMI) 32.3 ABG / Lab / Microbiology Data 10/09/22 13:53 10/09/22 13:53 Radiography Diagnostic Testing: Radiology Impression Knee X-Ray 10/10/22 07:04 IMPRESSION: Fluoroscopy during open reduction internal fixation of patellar fracture. Electronically Signed: Luis Bhakta MD at 14:58 EDT , Meaningful Use Info Meaningful Use Diagnoses (Choose all that apply): None applicable Discharge Plan Admission Admit Date/Time: 10/09/22 13:25 Primary Reason for Your Visit: Right patella ORIF Attending Provider: Davin Waller Primary Care Provider: Care Physician,No Primary Instructions Additional Instructions / Restrictions: Maintain knee brace at all times, removing only for hygiene purposes. Knee should not be bent. Weightbearing as tolerated to the right lower extremity with a walker. Maintain surgical dressing until postoperative day #3. Okay to remove outer dressing down to the waterproof Mepilex dressing on postoperative day #3 and shower. Remove Mepilex dressing on postoperative day #5 and leave open to air. Okay for soap and water to the incision. No tub soaks. Ice to the right knee. Discharge Orders/Prescriptions Prescriptions: New acetaminophen 500 mg Tablet 1,000 mg PO Q8 14 Days Qty: 84 0RF gabapentin 300 mg Capsule 300 mg PO TIDCM 14 Days Qty: 42 0RF aspirin 81 mg Tablet,Chewable 81 mg PO BIDCM 28 Days Qty: 56 0RF tramadol 50 mg tablet 100 mg PO Q8H PRN (Reason: pain) 7 Days Qty: 42 0RF ketorolac 10 mg tablet 10 mg PO Q6H PRN (Reason: pain) 3 Days Qty: 12 0RF Continued buprenorphine-naloxone 8-2 mg Tablet, Sublingual 1 tab SUBLINGUAL BID venlafaxine [Effexor XR] 150 mg Capsule,Extended Release 24hr 225 mg PO DAILY quetiapine 50 mg tablet 200 mg PO .hs naproxen 375 mg tablet 375 mg PO BID PRN (Reason: pain) 7 Days Qty: 14 0RF tramadol 50 mg tablet 50 mg PO Q8H PRN (Reason: pain) Qty: 14 0RF cephalexin 500 mg capsule 500 mg PO Q6 Qty: 40 0RF naproxen [Naprosyn] 500 mg tablet 500 mg PO BID PRN (Reason: pain) Qty: 20 0RF quetiapine 50 mg tablet extended release 24 hr 50 mg PO DAILY Patient Comments: take 1 tablet by mouth nightly Referrals / Follow Up: Davin Waller DO [Med Staff - Active Staff] - 10/30/22 Care Physician,No Primary [Primary Care Provider] - Disposition Disposition (needs filled in before D/C Order can be placed): Home, Self Care
== END 2022-10-11 11:53 | disposition home or self-care (01) | DRG 320 ==
PROVIDERS: Anesthesiology; Admitting Provider Student in an Organized Health Care Education/Training Program; Referring Provider Student in an Organized Health Care Education/Training Program; Visit Provider Student in an Organized Health Care Education/Training Program
PROC: 0QSD04Z Reposition Right Patella with Internal Fixation Device, Open Approach (ICD-10-PCS; CPT 27524; principal; 2022-10-10 07:15)
DX: S82.031 Displaced transverse fracture of right patella (principal); F41.9 Anxiety disorder, unspecified; W10.1XXA Fall (on)(from) sidewalk curb, initial encounter; Y92.512 Supermarket, store or market as the place of occurrence of the external cause
CPT/HCPCS: 36415; 73560; 76000; 80053; 81025; 85025; 97162; 97165; C1713; J7120; J2405